=== PATIENT | male | born 2000 | race Caucasian/White ===

== ENCOUNTER 2021-09-06 01:21 | Emergency (ER) | payer OTHER ==
[~2021-09-06] VITALS: Ht 175.3 cm; Wt 79.5 kg
[2021-09-06] MEDS ORDERED: GUAI100L6 PO (01:30)
[2021-09-06] MEDS ORDERED: D-ME118L PO (01:30)
[2021-09-06] MEDS ORDERED: IBUP-1363 PO (01:30)
[2021-09-06] MEDS ORDERED: ACETAMINOPHEN 325 MG TAB PO ONE (01:45)
[2021-09-06 02:58] LABS: RSV AMPLIFICATION POSITIVE (NEGATIVE)
[2021-09-06] MEDS ORDERED: IBUPROFEN 400MG TAB PO ONE (03:15)
--- NOTE | 2021-09-06 03:44 | REPVR ---
PROCEDURE INFORMATION: Exam: XR Chest Exam date and time: 09/06/21 (3:14am) Age: 20 years old Clinical indication: RSV. LLL crackles. TECHNIQUE: Imaging protocol: XR of the chest. Views: 2 views. COMPARISON: No relevant prior studies available. FINDINGS: Lungs: Patchy LLL (retrocardiac) infiltrate. Pleural spaces: Unremarkable. No pleural effusions. No pneumothorax. Heart/Mediastinum: Unremarkable. No cardiomegaly. Bones/joints: Unremarkable. IMPRESSION: Patchy LLL infiltrate. The lung obrien are otherwise clear. No pleural effusions. Probable infectious LLL pneumonia. Electronically signed by: Trina Linder On 09/06/2021 03:43:28 AM
--- OUTSIDE RECORDS SUMMARY | 2021-09-06 04:00 | CCD ---
Author Author [facility] Address Unknown Phone Unavailable Support Name Relationship Address Phone [facility] Next Of Kin [address] [place] [address] Unavailable Re-disclosure Warning The records that you are about to access may contain information from federally-assisted alcohol or drug abuse programs. If such information is present, then the following federally mandated warning applies: This information has been disclosed to you from records protected by federal confidentiality rules (42 CFR part 2). The federal rules prohibit you from making any further disclosure of this information unless further disclosure is expressly permitted by the written consent of the person to whom it pertains or as otherwise permitted by 42 CFR part 2. A general authorization for the release of medical or other information is NOT sufficient for this purpose. The Federal rules restrict any use of the information to criminally investigate or prosecute any alcohol or drug abuse patient.The records that you are about to access may contain highly sensitive health information, the redisclosure of which is protected by Article 27-F of the [facility] Public Health law. If you continue you may have access to information: Regarding HIV / AIDS; Provided by facilities licensed or operated by the [facility] Office of Mental Health; or Provided by the [facility] Office for People With Developmental Disabilities. If such information is present, then the following [facility] mandated warning applies: This information has been disclosed to you from confidential records which are protected by state law. State law prohibits you from making any further disclosure of this information without the specific written consent of the person to whom it pertains, or as otherwise permitted by law. Any unauthorized further disclosure in violation of state law may result in a fine or halfway sentence or both. A general authorization for the release of medical or other information is NOT sufficient authorization for further disc losure. Medications No Information Insurance Providers Payer name Policy type / Coverage type Policy ID Covered libertarian ID Covered libertarian's relationship to griffin Policy [employer] Plan [facility] [employer] [id number] Problems, Conditions, and Diagnoses No Information Surgeries/Procedures No Information Results ID Date Data Source [id number] 02/07/2021 02:36:00 PM EDT [facility] Name Value Range Interpretation Code Description Data Radha rce(s) Supporting Document(s) SARS coronavirus 2 RNA Not Detected [facility] [place] This lab was ordered by [facility] and reported by [facility]. Procedure Social History No Information
[2021-09-06] MEDS ORDERED: LIDOCAINE 1% SDV 5ML VIAL DILUENT ONE (04:15)
[2021-09-06] MEDS ORDERED: cefTRIAXone SOD 2 GM VIAL (J0696 PER 250MG) IM ONE (04:15)
[2021-09-06] MEDS ORDERED: AZITHROMYCIN 250MG TABLET PO ONE (04:15)
[2021-09-06] MEDS ORDERED: CEFD300C PO (04:16)
[2021-09-06] MEDS ORDERED: AZIT500T5 PO (04:16)
[2021-09-06 04:37] VITALS: BP 123/65
== END 2021-09-06 04:39 | disposition home or self-care (01) ==
LOC: M ED 01:21
DX: J15.9 Unspecified bacterial pneumonia (principal); B97.4 Respiratory syncytial virus as the cause of diseases classified elsewhere; F17.290 Nicotine dependence, other tobacco product, uncomplicated; Z79.899 Other long term (current) drug therapy
CPT/HCPCS: 71046; 87631; 96372; 99283; J0696